=== PATIENT | female | born 1940 | race Caucasian/White ===

== ENCOUNTER 2025-04-16 08:55 | Outpatient (CLI) | payer MEDICARE | END 2025-04-16 08:56 | disposition home or self-care (01) | LOC: CSHWCC 08:55 | PROVIDERS: ATTEND Nurse Practitioner Family | DX: I87.311 Chronic venous hypertension (idiopathic) with ulcer of right lower extremity (principal); L97.212 Non-pressure chronic ulcer of right calf with fat layer exposed; I69.352 Hemiplegia and hemiparesis following cerebral infarction affecting left dominant side; D50.8 Other iron deficiency anemias; Z79.01 Long term (current) use of anticoagulants; Z85.3 Personal history of malignant neoplasm of breast | CPT/HCPCS: 11042; 99214; G0463 ==

== ENCOUNTER 2025-04-24 10:16 | Outpatient (CLI) | payer MEDICARE | END 2025-04-24 10:17 | disposition home or self-care (01) | LOC: CSHWCC 10:16 | PROVIDERS: ATTEND Nurse Practitioner Family | DX: I87.311 Chronic venous hypertension (idiopathic) with ulcer of right lower extremity (principal); L97.212 Non-pressure chronic ulcer of right calf with fat layer exposed; I69.352 Hemiplegia and hemiparesis following cerebral infarction affecting left dominant side; D50.8 Other iron deficiency anemias; Z85.3 Personal history of malignant neoplasm of breast; Z79.01 Long term (current) use of anticoagulants | CPT/HCPCS: 97597 ==

== ENCOUNTER 2025-05-01 10:57 | Outpatient (CLI) | payer MEDICARE | END 2025-05-01 10:58 | disposition home or self-care (01) | LOC: CSHWCC 10:57 | PROVIDERS: ATTEND Nurse Practitioner Family | DX: I87.311 Chronic venous hypertension (idiopathic) with ulcer of right lower extremity (principal); L97.212 Non-pressure chronic ulcer of right calf with fat layer exposed; I69.352 Hemiplegia and hemiparesis following cerebral infarction affecting left dominant side; D50.8 Other iron deficiency anemias; Z85.3 Personal history of malignant neoplasm of breast; Z79.01 Long term (current) use of anticoagulants | CPT/HCPCS: 11042 ==

== ENCOUNTER 2025-05-08 11:03 | Outpatient (CLI) | payer MEDICARE | END 2025-05-08 11:04 | disposition home or self-care (01) | LOC: CSHWCC 11:03 | PROVIDERS: ATTEND Nurse Practitioner Family | DX: I87.311 Chronic venous hypertension (idiopathic) with ulcer of right lower extremity (principal); L97.212 Non-pressure chronic ulcer of right calf with fat layer exposed; I69.352 Hemiplegia and hemiparesis following cerebral infarction affecting left dominant side; D50.8 Other iron deficiency anemias; Z85.3 Personal history of malignant neoplasm of breast; Z79.01 Long term (current) use of anticoagulants | CPT/HCPCS: 11042 ==

== ENCOUNTER 2025-05-11 11:00 | Outpatient (CLI) | payer MEDICARE | END 2025-05-11 11:01 | disposition home or self-care (01) | LOC: CSHWCC 11:00 | PROVIDERS: ATTEND Nurse Practitioner Family | DX: I87.311 Chronic venous hypertension (idiopathic) with ulcer of right lower extremity (principal); L97.212 Non-pressure chronic ulcer of right calf with fat layer exposed; I69.352 Hemiplegia and hemiparesis following cerebral infarction affecting left dominant side; D50.8 Other iron deficiency anemias; Z85.3 Personal history of malignant neoplasm of breast; Z79.01 Long term (current) use of anticoagulants | CPT/HCPCS: 11042 ==

== ENCOUNTER 2025-05-29 10:52 | Outpatient (CLI) | payer MEDICARE | END 2025-05-29 10:53 | disposition home or self-care (01) | LOC: CSHWCC 10:52 | PROVIDERS: ATTEND Nurse Practitioner Family | DX: I87.311 Chronic venous hypertension (idiopathic) with ulcer of right lower extremity (principal); L97.212 Non-pressure chronic ulcer of right calf with fat layer exposed; I69.352 Hemiplegia and hemiparesis following cerebral infarction affecting left dominant side; D50.8 Other iron deficiency anemias; Z79.01 Long term (current) use of anticoagulants; Z85.3 Personal history of malignant neoplasm of breast | CPT/HCPCS: 11042 ==

== ENCOUNTER 2025-06-22 15:12 | Outpatient (CLI) | payer MEDICARE | END 2025-06-22 15:13 | disposition home or self-care (01) | LOC: CSHWCC 15:12 | PROVIDERS: ATTEND Nurse Practitioner Family | DX: Z09 Encounter for follow-up examination after completed treatment for conditions other than malignant neoplasm (principal); I69.352 Hemiplegia and hemiparesis following cerebral infarction affecting left dominant side; D50.8 Other iron deficiency anemias; Z87.2 Personal history of diseases of the skin and subcutaneous tissue; Z79.01 Long term (current) use of anticoagulants; Z85.3 Personal history of malignant neoplasm of breast | CPT/HCPCS: 99212; G0463 ==